=== PATIENT | male | born 1995 | race African-American/Black ===

== ENCOUNTER → 2016-11-26 | Outpatient (CLI) | payer OTHER | LOC: COL.PUL 08:00 | DX: R00.2 Palpitations (principal); R06.00 Dyspnea, unspecified; R07.89 Other chest pain; Z87.891 Personal history of nicotine dependence ==

== ENCOUNTER 2018-03-26 16:20 | Emergency (ER) | payer OTHER ==
[~2018-03-26] VITALS: Ht 188 cm; Wt 120.5 kg
[2018-03-26 16:26] VITALS: TEMP 98
[2018-03-26 17:55] VITALS: BP 132/89; PULSE 97
== END 2018-03-26 17:40 | disposition home or self-care (01) ==
LOC: COL.ER 16:20
DX: S80.11XA Contusion of right lower leg, initial encounter (principal); W11.XXXA Fall on and from ladder, initial encounter; Y92.009 Unspecified place in unspecified non-institutional (private) residence as the place of occurrence of the external cause